=== PATIENT | male | born 1965 | race African-American/Black ===

== ENCOUNTER 2021-12-03 15:41 | Emergency (ER) | payer OTHER ==
[2021-12-03 15:48] VITALS: BP 124/88; PULSE 65; TEMP 97.8; BMI 33.0
== END 2021-12-03 18:31 | disposition home or self-care (01) ==
LOC: JERFT 15:41
DX: F07.81 Postconcussional syndrome (principal); S09.90XA Unspecified injury of head, initial encounter; W22.8XXA Striking against or struck by other objects, initial encounter; Y92.002 Bathroom of unspecified non-institutional (private) residence as the place of occurrence of the external cause
CPT/HCPCS: 70450-TC; 99284-25